=== PATIENT | male | born 1995 | race Caucasian/White ===

== ENCOUNTER 2020-11-22 21:42 | Inpatient (IN) | payer OTHER, SELFPAY ==
[2020-11-22 22:16] LABS: Bilirubin Negative (Negative); Blood, Urine Large (Negative); Clarity Slightly Cloudy (Clear); Glucose, Urine (Dipstick) Negative (Negative); Ketone, Urine Negative (Negative); Leukocyte Negative (Negative); Nitrite Negative (Negative); Protein, Urine (Dipstick) 100 mg/dL (Neg-Trace); Urobilinogen 0.2 mg/dL (Less than 2); pH, Urine 6.5 (5.0-9.0)
[2020-11-22 22:21] LABS: #Basophils 0.1 thou/uL (0.0-0.2); #Eosinphils 0.2 thou/uL (0.0-0.7); #Lymphocytes 2.8 thou/uL (1.20-3.40); #Monocytes 0.7 thou/uL (0.11-0.59); #Neutrophils 5.1 thou/uL (1.40-6.50); %Basophils 0.9 % (0.0-1.0); %Eosinophils 2.5 % (0.0-10.0); %Lymphocytes 31.5 % (21.0-51.0); %Monocytes 7.3 % (0.0-10.0); %Neutrophils 57.8 % (42.0-75.0); Hemoglobin 15.8 g/dL (14.0-18.0); Mean Corpuscular Hemoglobin 29.7 pg (27.0-31.0); Mean Corpuscular Volume 87.3 fL (78.0-98.0); Mean Platelet Volume 8.5 fL (7.4-10.4); Platelet Count 178 thou/uL (130-400); RBC Distribution Width 10.9 % (11.5-14.5); Red Blood Cell (RBC) Count 5.31 mill/uL (4.70-6.10); White Blood Cell (WBC) Count 8.9 thou/uL (4.8-10.8)
[2020-11-22 22:27] LABS: Amphetamine Not Detected (NotDetected); Barbiturates Screen Not Detected (NotDetected); Benzodiazepine Screen Not Detected (NotDetected); Cocaine Metabolite Screen Not Detected (NotDetected); Medtox Control Line Valid? VALID (VALID); Methadone Not Detected (NotDetected); Methamphetamine Not Detected (NotDetected); Opiate Screen Not Detected (NotDetected); Oxycodone Screen Not Detected (NotDetected); Phencyclidine (PCP) Not Detected (NotDetected); THC/Cannabinoid Screen Not Detected (NotDetected); Tricyclic Screen Not Detected (NotDetected)
[2020-11-22 22:29] LABS: ALT (SGPT) 207 U/L (8-55); AST (SGOT) 774 U/L (5-34); Albumin 4.3 g/dL (3.5-5.0); Alkaline Phosphatase 47 U/L (40-110); Anion Gap 14 mmol/L (10-20); BUN (Urea Nitrogen) 13 mg/dL (8.9-20.6); Bilirubin, Total 0.4 mg/dL (0.2-1.2); Calc. Creatinine Clearance 0 mL/min (70-130); Carbon Dioxide 26 mmol/L (22-29); Chloride 105 mmol/L (98-107); Globulin 2.5 g/dL (2.4-3.5); Glucose 83 mg/dL (70-105); Potassium 3.8 mmol/L (3.5-5.1); Protein, Total 6.8 g/dL (6.0-8.3); Sodium 141 mmol/L (136-145)
[2020-11-22 22:34] LABS: Bacteria/HPF Rare-Few HPF (None Seen); RBC/HPF 0-3 HPF (0-3); Squamous Epithelial 0-3 HPF (0-3); WBC/HPF 0-3 HPF (0-3)
[2020-11-22] MEDS ORDERED: Sodium Bicarb 50 MEQ/50 ML Abboject 8.4% SYRINGE ONE (22:50)
[2020-11-22 23:15] LABS: CK (CPK) 38045 U/L (30-200)
[2020-11-22 23:49] VITALS: BMI 27.2
[2020-11-23] MEDS ORDERED: Sodium Bicarb 50 MEQ/50 ML Abboject 8.4% SYRINGE ONE (00:43)
[2020-11-23] MEDS: Sodium Bicarbonate 50 MEQ in Sodium Chloride 0.9% 1,000 ML IV SCH ×2 (00:51→02:00)
[2020-11-23 05:29] LABS: Anion Gap 9 mmol/L (10-20)
[2020-11-23 06:00] LABS: ALT (SGPT) 187 U/L (8-55); AST (SGOT) 596 U/L (5-34); Albumin 3.6 g/dL (3.5-5.0); Alkaline Phosphatase 39 U/L (40-110); BUN (Urea Nitrogen) 11 mg/dL (8.9-20.6); Bilirubin, Total 0.8 mg/dL (0.2-1.2); CK (CPK) 29377 U/L (30-200); Calc. Creatinine Clearance 149 mL/min (70-130); Carbon Dioxide 28 mmol/L (22-29); Chloride 109 mmol/L (98-107); Globulin 2.1 g/dL (2.4-3.5); Glucose 81 mg/dL (70-105); Protein, Total 5.7 g/dL (6.0-8.3); Sodium 142 mmol/L (136-145)
[2020-11-23 06:31] LABS: SARS-CoV-2 NAA Rapid Test Not Detected (NotDetected)
[2020-11-23] MEDS: Acetaminophen 325 MG TAB PO PRN (07:17)
[2020-11-23 07:44] LABS: Bilirubin Negative (Negative); Blood, Urine Large (Negative); Clarity Clear (Clear); Glucose, Urine (Dipstick) Negative (Negative); Ketone, Urine Negative (Negative); Leukocyte Negative (Negative); Nitrite Negative (Negative); Protein, Urine (Dipstick) 100 mg/dL (Neg-Trace); Urobilinogen 0.2 mg/dL (Less than 2); pH, Urine 7.5 (5.0-9.0)
[2020-11-23 07:53] LABS: Bacteria/HPF 1+ HPF (None Seen); RBC/HPF 0-3 HPF (0-3); Squamous Epithelial 0-3 HPF (0-3); WBC/HPF 0-3 HPF (0-3)
[2020-11-23] MEDS: Sodium Chloride 0.9% 1,000 ML IV SCH ×2 (08:01→11:10)
[2020-11-23 11:47] LABS: Phosphorus 4.7 mg/dL (2.3-4.7)
[2020-11-23 12:22] VITALS: BP 144/87
[2020-11-23 16:10] VITALS: TEMP 98
--- NOTE | 2020-11-23 18:34 | HP ---
HISTORY OF PRESENT ILLNESS: A 25-year-old male patient arrived to the [facility] [[email or web address]] emergency room in the evening of 11/22/2020 with a complaint of tea colored urine and muscle pain. He recently began engaging in heavy exercise including weight training. Lab results confirmed the diagnosis of rhabdomyolysis based on CK initial value of 38,045. His renal function is normal. His urine was positive for large blood, 100 mg/dL of protein, but no rbc's. He was afebrile. Vital signs were initially abnormal. HIs blood pressure was elevated 190/100 range, but has since normalized. He was admitted for IV hydration. CURRENT MEDICATIONS: Zyrtec 10 mg daily for allergies. ALLERGIES: Codeine, Bactrim, Rocephin, Biaxin PAST SURGICAL HISTORY: Negative. PAST MEDICAL HISTORY: Seasonal allergies. PAST SOCIAL HISTORY: Vapes, Occasional alcohol. He admits one cocktail on the day of his ER visit. He denied any recreational drug use. He denied dietary supplement, protein supplement, or weight loss supplement. PAST FAMILY HISTORY: Noncontributory. REVIEW OF SYSTEMS: Negative 14-point review of systems except as mentioned above PHYSICAL EXAMINATION: INITIAL VITAL SIGNS: Temperature 98.8, heart rate 71, respirations 16, O2 saturation 100% on room air, blood pressure was 141/99, repeat blood pressure 139/99, and then at 4:00 a.m., his blood pressure was 125/72, it has remained stable since his admission. GENERAL: Alert, oriented x3, well appearing, in no acute distress. HEENT: Negative. CARDIOVASCULAR SYSTEM: Normal S1 and S2. Regular rate and rhythm. No murmur. RESPIRATIONS: Unlabored. Clear to auscultation bilaterally. ABDOMEN: Normoactive bowel sounds. Soft, nontender, nondistended. No mass or megaly. NEUROLOGIC: CN II- XII intact grossly. Normal motor function. EXTREMITIES: Symmetrical without clubbing or edema. 2+ pedal pulses. SKIN: Without rash or lesion. ASSESSMENT: Rhabdomyolysis. PLAN: IV hydration. He has been admitted for 23 hours observation and will be discharged home later this evening after 4 L normal saline IV infusion. He has been instructed to follow up for repeat lab work. He has no PCP, so we will repeat his CK and renal function in 1 week after discharge. Job ID: [id number] [facility]
--- NOTE | 2020-11-24 08:02 | PDOC.DS.DS ---
Provider Date of Admission: 11/22/20 23:37 Date of Discharge: 11/23/20 Admitting Provider: Katheryn Guzmán MD Consultations: None Primary Care Physician: ANTONIO Gordon Course Hospital Course: 25 yo male arrived to [facility] ER with report of tea colored urine and muscle pain after having completed an intense work-out 48 hours prior. His Creatinine Phospho Kinase was found to be very elevated confirming the diagnosis of Rhabdomyolysis. His initial CK was 38,000. Repeat CK improved to 29,000 12 hours later after 2 liters NS infusion. He denied heavy alcohol use or dietary supplement use during the time immediately preceeding symptom onset. Resuscitation Status: 11/23/20 06:35 Resuscitation Status Routine Co-Sign Provider: Resuscitation Status: FULL: Full Resuscitation Lab Results: 11/22/20 22:17 11/23/20 05:00 Abnormal Lab Results - Last 48 hrs 11/22/20 22:17: RDW 10.9 L, Monocytes # 0.7 H 11/22/20 22:17: AST 774 H, ALT 207 H, Creatine Kinase 80170 H 11/22/20 22:17: Urine Protein 100 A, Urine Blood Large A 11/23/20 05:00: Chloride 109 H, Anion Gap 9 L, AST 596 H, ALT 187 H, Alkaline Phosphatase 39 L, Creatine Kinase 39531 H, Serum Total Protein 5.7 L, Globulin 2.1 L 11/23/20 07:28: Urine Protein 100 A, Urine Blood Large A, Urine Bacteria 1+ A Vitals: Weight Weight 189 lb 15.91 oz Physical Exam: The patient was seen and examined on the day of discharge. General Appearance: NAD, awake alert Eye: PERRL, anicteric sclera ENT: normocephalic atraumatic, no oropharyngeal lesions, moist mucosa Neck: supple, symmetric, no JVD, no thyromegaly, no lymphadenopathy Respiratory: CTAB, normal chest expansion Cardiovascular: RRR, no murmur, normal peripheral pulses Gastrointestinal: soft, non-tender, non-distended, normal bowel sounds, no palpable masses, no hepatomegaly Extremities: no cyanosis, no clubbing, no edema Skin: normal turgor, no lesions, no rashes Neurological: cranial nerve grossly intact, normal sensation to touch, no weakness, no focal deficits Musculoskeletal: normal tone, normal strength, no muscle wasting PSYCH: normal affect, normal behavior, A&O x 3 Plan Home Medications: Medication Instructions Recorded Confirmed Type RX: Acetaminophen [Tylenol Regular 650 mg PO Q4H PRN tab 11/23/20 Rx Strength] RX: Cetirizine HCl [Zyrtec] 10 mg PO DAILY 11/23/20 11/23/20 History Allergies: ceftriaxone [From Rocephin] Allergy (Intermediate, Verified 11/23/20 00:11) Anaphylaxis clarithromycin [From Biaxin] Allergy (Intermediate, Verified 11/23/20 00:11) Anaphylaxis codeine Allergy (Intermediate, Verified 11/23/20 00:11) Anaphylaxis sulfamethoxazole [From Bactrim] Allergy (Intermediate, Verified 11/23/20 00:11) Anaphylaxis trimethoprim [From Bactrim] Allergy (Intermediate, Verified 11/23/20 00:11) Anaphylaxis Discharge Instructions:: Avoid alcohol and exercise until further notice. Hydrate well to help clear the toxic level of enzymes that have accumulated. Once Creatinine Kinase approaches normal, may resume regular exercise. To avoid future problems, stay well hydrated during exercise and avoid combining exercise and alcohol. Please call [facility] to schedule repeat lab work for Thursday, , or Thursday of next week at [phone] Activity:: Activity as Tolerated (but no heavy exercise until further notice) Nourishment:: Regular Diet Therapies:: Not Applicable Equipment/Supplies:: Not Applicable IV Therapy:: Not Applicable Referrals: Selena Cheung, MSN [employer] [Allied Health Professional] - Disposition: HOME Quality CORE MEASURES:: N/A
--- NOTE | 2020-11-24 09:33 | PQF ---
CLINICAL DOCUMENTATION CLARIFICATION FORM: Dear : Katheryn Guzmán Date / Time: 11/24/2020 Please exercise your independent, professional judgment in responding to the clarification form. Clinical indicators are provided on the bottom of this form for your review Please check appropriate box(es): [ ] Traumatic rhabdomyolysis [ x ] Non-traumatic rhabdomyolysis [ ] Other diagnosis [ ] Unable to determine In addition, please specify: Present on Admission (POA): [ x ] Yes [ ] No [ ] Unable to determine To be completed by CDI/Coding staff for physician review: Present Clinical Indicators - Signs / Symptoms / Labs Results and Location in Medical Record [ x ] Arrived to the ER with muscle pain after having completed an intense work- out 48 hours prior. His CK was found to be very elevated confirming the diagnosis of rhabdomyolysis. [place] [address]97. Discharge summary [ x ] He recently began engaging in heavy exercise including weight training, and lab result confirmed the diagnosis of rhabdomy[place] [address] H and P [ x ] CKs were 67787, 69831 Laboratory Present Risk Factors Results and Location in Medical Record [ x ] Recently engaging in heavy exercise and weight training H and P Present Treatments Results and Location in Medical Record [ x ] IV fluids 11/22-11/23 Medications [ x ] Daily labs for CK Laboratory [ ] [ ] CDS/Nascar Driver Signature: [email or web address] Phone #: Date/Time: 11/24/2020 This is a permanent part of the Medical Record [facility]
== END 2020-11-23 16:15 | disposition home or self-care (01) | DRG 558 ==
LOC: BURERS 21:42 → BURMED 23:37
PROVIDERS: ADMIT Family Medicine; ATTEND Family Medicine
DX: M62.82 Rhabdomyolysis (principal); Z20.822 Contact with and (suspected) exposure to COVID-19; Z88.1 Allergy status to other antibiotic agents; Z88.5 Allergy status to narcotic agent; Z88.8 Allergy status to other drugs, medicaments and biological substances; Z79.899 Other long term (current) drug therapy
CPT/HCPCS: 0240U; 36415; 80053; 80306; 81001; 81003; 81015; 82550; 83605; 84100; 85025; 99284; J7050